=== PATIENT | female | born 1945 | race Caucasian/White ===

== ENCOUNTER 2022-11-03 08:08 | Emergency (ER) | payer MEDICARE, OTHER ==
[~2022-11-03] VITALS: Ht 167.6 cm; Wt 68.2 kg
[2022-11-03 08:35] VITALS: BP 149/68
[2022-11-03] MEDS ORDERED: HYDROcodone/acetaminophen 5mg/325mg tablet PO ONE (09:55)
[2022-11-03] MEDS ORDERED: HYDR-3965 PO (11:08)
--- NOTE | 2022-11-03 11:54 | NUR ---
PT AMBULATED ABOUT 5FT FOR GAIT TEST. PT STATED " I DO NOT WANT TO DO THIS I DO NOT FEEL COMFORTABLE" PT DENIED FURTHER EDUCATION OF CRUTCHES.
== END 2022-11-03 12:00 | disposition home or self-care (01) ==
LOC: ER 08:09
DX: S82.492A Other fracture of shaft of left fibula, initial encounter for closed fracture (principal); G89.29 Other chronic pain; M54.9 Dorsalgia, unspecified; Z79.899 Other long term (current) drug therapy; X50.9XXA Other and unspecified overexertion or strenuous movements or postures, initial encounter; Y93.89 Activity, other specified; Y92.89 Other specified places as the place of occurrence of the external cause; Y99.8 Other external cause status
CPT/HCPCS: 12004; 29515; 73610; 99284; A6449